=== PATIENT | female | born 1990 | race Caucasian/White ===

== ENCOUNTER 2019-12-09 18:35 | Emergency (ER) | payer OTHER, SELFPAY ==
--- NOTE | 2019-12-09 18:50 | ED.GENADULT ---
HPI - General Adult General Chief complaint: Skin/Abscess/Foreign Body Stated complaint: contact dermatitis/itchy Time Seen by Provider: 12/09/19 18:56 Source: patient and RN notes reviewed Mode of arrival: ambulatory Limitations: no limitations History of Present Illness HPI narrative: This is a 29 years old female presents to the office for an evaluation of possible dermatitis. States, symptoms began shortly after she applies new a body lotion on her face; describes as burning sensation yesterday. She woke up this morning with itchiness, redness and swollen. Denies associated symptoms such as blurry vision, sore throat, difficulty swallowing, short of breath, or feeling ill. She has tried [id number] 25 mg Benadryl at this morning and also a topical anti-itch cream with zinc in it. Symptoms have not gotten any better since the treatment. Related Data Home Medications Medication Instructions Recorded Confirmed diazepam [Valium] 10 mg HS 12/09/19 12/09/19 escitalopram oxalate [Lexapro] 10 mg PO DAILY 12/09/19 12/09/19 phenazopyridine 200 mg TID 12/09/19 12/09/19 Allergies Allergy/AdvReac Type Severity Reaction Status Date / Time No Known Allergies Allergy Verified 12/09/19 18:59 Review of Systems Review of Systems: Narrative: CONSTITUTIONAL: Denies fever or feeling ill. ENT: Denies lump in back of her throat CARDIOVASCULAR: Denies chest pain RESPIRATORY: Denies dyspnea, wheezing GASTROINTESTINAL: Denies nausea, vomiting SKIN: Reports itchy, red hives on her face NEUROLOGIC: Denies dizziness PMFSH Past Medical History Medical History (Updated 12/09/19 @ 19:15 by LAYLA Jurado) Bladder spasms Depressive disorder CHRIST (generalized anxiety disorder) Family History Family History Mother Family history of elevated blood lipids Grandparent Family history of kidney disease Family history of malignant melanoma Social History Social History Smoking status: Never smoker Alcohol intake: never Gender identity (if verbalized by the patient): Female Comments At time of signature, I agree with nursing past medical, surgical, social and family history. There is no relevant family history pertinent to the presenting complaint. Exam Narrative: Exam Narrative: GENERAL: This is a well-nourished, well-developed patient, in no apparent distress. EYES: PERRL. Sclera clear/white. Vision is grossly intact. THROAT: Mucous membranes moist, posterior pharynx clear. NECK: Neck supple, non-tender without lymphadenopathy, masses or thyromegaly. CARDIOVASCULAR: Regular rate and rhythm without murmurs, gallops, or rubs. RESPIRATORY: Clear to auscultation. Breath sounds equal bilaterally. No wheezes, rales, or rhonchi. SKIN: face is flush with edematous erythema around her cheeks, cross over her nose and around her mouth. NEURO: awake, alert, and oriented to person, place and time. There were no obvious focal neurologic abnormalities. Steady gait Demar Coma Scale Eye Opening: Spontaneous 4 [place] Coma Scale Motor: Obeys Commands 6 [place] Coma Scale Verbal: Oriented 5 Course Vital Signs Vital signs: Vital Signs Temperature 97.6 F 12/09/19 18:51 Pulse Rate 80 12/09/19 18:51 Respiratory Rate 18 12/09/19 18:51 Blood Pressure 112/67 12/09/19 18:51 Pulse Oximetry 100 12/09/19 18:51 Temperature 97.6 F 12/09/19 18:51 Pulse Rate 80 12/09/19 18:51 Respiratory Rate 18 12/09/19 18:51 Blood Pressure 112/67 12/09/19 18:51 Pulse Oximetry 100 12/09/19 18:51 Medical Decision Making MDM Narrative Medical decision making narrative: Discharge instructions reviewed with patient, as well as provided in writing per nursing staff. The instructions also include specific and strict return/GO TO THE ER as well as f/u information. All questions have been answered, a
[2019-12-09 18:51] VITALS: BP 112/67; PULSE 80; RESP 18; TEMP 36.4; O2SAT 100
== END 2019-12-09 19:14 | disposition home or self-care (01) ==
PROVIDERS: Emergency Provider Nurse Practitioner
DX: L25.9 Unspecified contact dermatitis, unspecified cause (principal); F32.9 Major depressive disorder, single episode, unspecified; F41.9 Anxiety disorder, unspecified
CPT/HCPCS: 99203; G0463

== ENCOUNTER 2022-08-07 09:46 | Outpatient (CLI) | payer OTHER, SELFPAY ==
--- NOTE | ~2022-08-07 | MMUS_ITS ---
EXAMINATION: MM diagnostic garrick BI w tia, US breast BI complete HISTORY: Palpable right breast abnormality. TECHNIQUE: Additional 3-D tomosynthesis images of the breasts were performed and synthetic 2-D images were generated. CAD analysis was submitted and interpreted. High resolution complete bilateral breas t ultrasound was performed. COMPARISON: No prior studies for comparison. BREAST PARENCHYMAL COMPOSITION: The breasts are extremely dense, which lowers the sensitivity of mamm ography FINDINGS: MAMMOGRAPHIC FINDINGS: There are no discrete masses, architectural distortion or suspicious calcifications in the right michelle st to suggest malignancy. There is a small 5 mm circumscribed radiolucent nodule in the lower outer q uadrant of the left breast, not well visualized on the cc view. ULTRASOUND: Complete bilateral US of all 4 quadrants of the breasts and retroareolar region was reviewed. Right breast ultrasound: At 8:00, 5 cm from the nipple in the area of palpable concern there is a sli ghtly irregular shaped hypoechoic mass measuring 2.2 x 1.3 x 2.8 cm. There is internal vascularity. N o significant posterior features. There is parallel orientation. At 12:00, 3 cm from the nipple, ther e is an oval parallel oriented hypoechoic mass without internal vascularity measuring 1 cm maximum di mension, likely benign. At 10:00, 6 cm from the nipple, there is a complex heterogeneous mass measuri ng 1.2 x 0.9 x 0.5 cm with some angular margins, no internal vascularity, parallel orientation and po sterior acoustic enhancement. Left breast: At 12:00, 1 cm from the nipple there is a 2 mm cyst. Also at 12:00, 1 cm from the nipple , there is a 6 mm cyst. At 1:00, 2 cm from the nipple there is an irregular shaped hypoechoic 6 mm ma ss with parallel orientation and no significant posterior features. At 8:00, 4 cm from the nipple nip ple there is a heterogeneous predominantly hypoechoic mass measuring 9 x 4 x 9 mm. There is mixed pos terior attenuation. No internal vascularity. IMPRESSION: 1. Abnormal bilateral breast masses by ultrasound including a 2.2 cm mass of the right breast at 8:00 , 5 cm from the nipple and a 1.2 cm mass at 10:00, 6 cm from the nipple. In the left breast there is an irregular shaped 6 mm mass at 1:00, 2 cm from the nipple and a 9 mm mass at 8:00, 4 cm from the ni pple. 2. Bilateral breast biopsies recommended. BI-RADS category 4, suspicious findings. Reviewed, dictated and finalized at location A. ICULUM DEVELOPMENT MANAGER IMPRESSION: 1. Abnormal bilateral breast masses by ultrasound including a 2.2 cm mass of th e right breast at 8:00, 5 cm from the nipple and a 1.2 cm mass at 10:00, 6 cm f rom the nipple. In the left breast there is an irregular shaped 6 mm mass at 1: 00, 2 cm from the nipple and a 9 mm mass at 8:00, 4 cm from the nipple. 2. Bilateral breast biopsies recommended. BI-RADS category 4, suspicious findings.
== END 2022-08-07 09:47 ==
PROVIDERS: PCP Obstetrics & Gynecology Gynecology; Visit Provider Obstetrics & Gynecology Gynecology
DX: N63.10 Unspecified lump in the right breast, unspecified quadrant (principal); R92.8 Other abnormal and inconclusive findings on diagnostic imaging of breast
CPT/HCPCS: 76641; 77062; 77066; G0279

== ENCOUNTER 2022-09-04 10:05 | Outpatient (CLI) | payer OTHER, SELFPAY ==
--- NOTE | ~2022-09-04 | MMUS_ITS ---
EXAMINATION: US breast biopsy RT w image, MM post biopsy invasive RT DATE: 09/04/2022 11:29 (accession [id number]), 09/04/2022 11:32 (accession [id number]) INDICATION: Palpable lump of the lower-outer quadrant of the right breast. Ultrasound-guided core bio psy is requested to evaluate for malignancy. TECHNIQUE AND FINDINGS: Patient presents for biopsy recommended on diagnostic mammogram and ultrasound. Four areas are recomm ended for biopsy, one corresponding to a palpable abnormality in the right breast and three incidenta lly detected by ultrasound. Masses described at the 10:00 location 6 cm from the nipple in the right breast, the 8:00 location 4 cm from the nipple in the left breast, at the 1:00 location 2 cm from the nipple in the left breast have a probably benign appearance. This was discussed with the patient and a follow-up targeted ultrasound of these areas in six months was agreed upon. The risks and potentia l benefits of biopsy of the palpable right breast mass were discussed with the patient including blee ding and infection. A time out was performed. The skin of the right breast was prepared and draped in usual sterile fashion. Lidocaine was used for superficial anesthesia. Lidocaine with epinephrine was used for deep anesthesia. A vacuum-assisted biopsy needle was advanced through to the outer edge of the region of interest from an inferior approach utilizing sonographic guidance. A total of three tissue core samples were obtai rashad through the lesion. A tissue marker clip was then placed at the biopsy site. Hemostasis was achie elaine. A sterile bandage was applied. The patient tolerated procedure well and there was no evidence of immediate complication. The patient was given verbal instructions to return to the Emergency Department in the event of severe breast pa in or rapid breast enlargement. A two view right breast mammogram was obtained to document tissue mar ker clip placement. IMPRESSION: 1. Successful ultrasound-guided vacuum-assisted biopsy of right breast mass with tissue marker placem ent. 2. Follow-up targeted bilateral breast ultrasound is recommended for the additional, probably benign masses described. Reviewed, dictated and finalized at location A. TOP SUPPORT CONSULTANT IMPRESSION: 1. Successful ultrasound-guided vacuum-assisted biopsy of right breast mass wit h tissue marker placement. 2. Follow-up targeted bilateral breast ultrasound is recommended for the additi onal, probably benign masses described.
== END 2022-09-04 10:06 | disposition home or self-care (01) ==
PROVIDERS: Visit Provider Surgery
DX: N63.10 Unspecified lump in the right breast, unspecified quadrant (principal); R92.8 Other abnormal and inconclusive findings on diagnostic imaging of breast
CPT/HCPCS: 19083; 88305; A4648

== ENCOUNTER 2024-02-21 14:48 | Outpatient (CLI) | payer OTHER, SELFPAY ==
--- NOTE | ~2024-02-21 | US_ITS ---
EXAMINATION: US OB transvaginal INDICATION: CONFIRMATION OF VIABILITY TECHNIQUE: Sonography of the pelvis was performed by transabdominal and transvaginal techniques. COMPARISON: None. RESULT: Uterus: 7.3 x 5.4 x 6.4 cm. Anteverted. Homogenous myometrium. Intrauterine gestational sac: Single present. Mean Sac Diameter: 1.31 cm, corresponding gestational age 5 week 4 days. Yolk sac: 0.5 cm . A second ringlike echogenic structure is also noted likely re presenting the amniotic sac (the double bleb sign). Embryo: Not seen. Subgestational hematoma: Absent . Right ovary: 2.6 x 3.5 x 2.8 cm. Vascular flow is present. No adnexal mass. Left ovary: Not visualized. No adnexal mass. Pelvis free fluid: None. IMPRESSION: Intrauterine of uncertain viability, possibly due to early gestational age. Estimated Gestational Age: 5 weeks, 4 days by mean gestational sac diameter. CHERELLE by ultrasound 2024. The left ovary was not visualized in this examination. Reviewed, dictated and finalized at location K. IMPRESSION: Intrauterine of uncertain viability, possibly due to early gestationa l age. Estimated Gestational Age: 5 weeks, 4 days by mean gestational sac diameter. E DD by ultrasound 10/19/2024. The left ovary was not visualized in this examination.
== END 2024-02-21 14:49 ==
LOC: MICIMG 14:50
PROVIDERS: PCP Advanced Practice Midwife; Visit Provider Advanced Practice Midwife
DX: O36.80X0 Pregnancy with inconclusive fetal viability, not applicable or unspecified (principal); Z3A.00 Weeks of gestation of pregnancy not specified
CPT/HCPCS: 76817

== ENCOUNTER 2024-03-03 12:45 | Outpatient (CLI) | payer OTHER, SELFPAY ==
--- NOTE | ~2024-03-03 | US_ITS ---
EXAMINATION: US OB transvaginal DATE: 03/03/2024 13:18 INDICATION: Inconclusive viability TECHNIQUE: Real-time transvaginal obstetric ultrasound. FINDINGS: Ultrasound dated 02/21/2024 The uterus measures 8.8 x 5.8 x 6.6 cm. Endometrium is thickened and heterogeneous measuring 2.1 cm. There is a fibroid posterior to the left of the uterus measuring 2.2 cm. There is an intrauterine ges tational sac with possible pole. No heart motions detected. Yolk sac is present. Gestatio nal sac measurements correspond to 5 week 2 day gestation (CHERELLE 11/01/2024). The ovaries are within no rmal limits. There is a small amount of free fluid in the pelvis. IMPRESSION: 1. Intrauterine gestational sac containing pole and yolk sac corresponding to 5 week 2 day gest ation. No heart motions detected, possibly due to early gestational age. Considerations include early intrauterine and failed . Recommend follow-up with serial quantitative beta -hCG levels and ultrasound as clinically indicated. Reviewed, dictated and finalized at location B. IMPRESSION: 1. Intrauterine gestational sac containing pole and yolk sac correspondin g to 5 week 2 day gestation. No heart motions detected, possibly due to e jordana gestational age. Considerations include early intrauterine and f camelia . Recommend follow-up with serial quantitative beta-hCG levels a nd ultrasound as clinically indicated.
== END 2024-03-03 12:46 ==
LOC: MICIMG 12:46
PROVIDERS: PCP Obstetrics & Gynecology Gynecology; Visit Provider Obstetrics & Gynecology Gynecology
DX: O36.80X0 Pregnancy with inconclusive fetal viability, not applicable or unspecified (principal); Z3A.00 Weeks of gestation of pregnancy not specified
CPT/HCPCS: 76817

== ENCOUNTER 2024-03-10 00:41 | Day surgery (SDC) | payer OTHER, SELFPAY ==
[2024-03-05 13:08] VITALS: BMI 30.8
--- NOTE | 2024-03-05 13:16 | SUR.PREOP ---
Report to the Outpatient Waiting Room, entrance under the green pavilion located off [facility], at time 0600 on date 03/10/2024. Planned Procedure Time: 0730. Time changes happen often and if your time is changed the preop area will call you the afternoon before. - You and your visitor will be asked to self-screen and do not enter if you have any COVID symptoms. - A mask is optional within the hospital at this time. Patients may have clear liquids (water, carbonated beverages, clear teas, apple juice) until 3 hours prior to surgery with a maximum of 20 ounces. - No food from midnight until time of surgery - Infants may have breast milk until 4 hours before surgery, infant formula 6 hours prior to surgery. - Children will be allowed to drink immediately following surgery. If applicable, please bring a bottle or sippy cup to assist with drinking. Juice, water, soda, and popsicles are readily available. For infants on formula, please bring formula the day of surgery. Pacifiers are allowed. Take the following medications with a SIP of water the morning of surgery: Lexapro DO NOT STOP ANY OF YOUR OTHER PRESCRIPTION MEDICATIONS PRIOR TO SURGERY ?EXCEPT THE FOLLOWING Medications to discontinue per physician Vitamins- 3 days Date to take last dose 03/07/2024 Please no make-up, nail romanian, hairspray, perfume, deodorant, or body powder the day of surgery. No jewelry (including any body piercings) or valuables the day of surgery, leave them at home. Please take a shower or bath the night before, or the morning of, surgery with an antibacterial soap. Wear comfortable, loose fitting clothing. Children are encouraged to wear pajamas. - Jewelry must be removed prior to entering the operating room. Rings and piercings that are not removed may be cut off. - The hospital will not accept responsibility for valuables. - Please leave all valuables, including medications, at home the day of surgery. If you are going home after surgery, a licensed electric mule driver must drive you home. - NO public transportation without another adult if you receive anesthesia. - We recommend that an adult stay with you for 24 hours following discharge. - We also recommend that you do not drive, make important decision, drink alcoholic beverages, or take any drugs that were not prescribed by your health care provider for at least 24 hours after your discharge time. For Pediatric surgeries, we recommend two adults accompany the child home. Follow any additional instructions given to you from your surgeon. If you or anyone in your household have experienced Covid symptoms in the past week, please notify your surgeon or the nurse liaison at the phone number below for possible testing. Telephone instructions given to Patient and asked if any additional questions and then verbalized understanding. Patient advised to call surgeon office or pre surgery nurse liaison [phone] if any additional questions.
--- NOTE | 2024-03-10 06:13 | P.PNAN_ITS ---
Anes - Initial Pre Proc Eval Procedure: Operation Date: 03/10/24 07:30 Proposed Procedures p Suction Dilation and Curettage - Eliza Banda MD Date/Time: 03/10/24 06:13 Surgeon: Eliza Banda MD Pre Op Diagnosis: missed ab Patient Data Age: 34 Gender: F Height: 1.65 m Weight: 84.09 kg Allergies Allergy/AdvReac Type Severity Reaction Status Date / Time No Known Allergies Allergy Verified 03/05/24 12:49 Home Medications Medication Instructions Recorded Confirmed Type escitalopram oxalate 10 mg tablet 10 mg PO DAILY 12/09/19 03/05/24 History (Lexapro) cetirizine 10 mg capsule (Zyrtec) 10 mg PO DAILY 08/10/22 03/05/24 History Patient hx anesthesia problems: none Family hx anesthesia problems: none Results Review: All pre-operative results and documents have been reviewed as part of the pre- operative evaluation. [facility] Past Medical History Medical History Bladder spasms Depression Depressive disorder CHRIST (generalized anxiety disorder) Family History Family History Mother Family history of elevated blood lipids Grandparent Family history of kidney disease Family history of malignant melanoma Social History Social History Smoking status: Never smoker Alcohol intake: former Alcohol use details: socially Substance use: never Living arrangements: with family Gender identity (if verbalized by the patient): Female Spiritual care concerns: No Anes - Eval Final PreProcedure Day of Procedure 03/10/24 06:13 Patient weight: overweight Heart: regular rate and rhythm Lungs: clear to auscultation Airway: Mallampati scale class II Neurological: alert and oriented Last oral intake: >/= 8 hours ASA classification: II Emergent: no Anesthetic plan: proceed Anesthesia type and monitoring: general GIVS and standard monitoring Results Review: All pre-operative results and documents have been reviewed as part of the pre- operative evaluation. Informed Consent: The patient's anesthetic plan and its attendant risks and benefits were discussed with the patient/family/POA. Questions were solicited and answers provided to the satisfaction of the patient/family/POA.
[2024-03-10] MEDS: ACETAMINOPHEN 500 MG TABLET 1000 MG PO (07:05)
[2024-03-10] MEDS: LACTATED RINGERS 1,000 ML 30 ML IV CONT (07:05)
--- NOTE | 2024-03-10 07:33 | WPDHPUPDATE1 ---
History and Physical Update Update Date/Time: 03/10/24 07:33 History and Physical has been reviewed, including an updated exam of the patient. There are NO changes in the patient's condition. Risks, benefits, and alternatives have been discussed and questions answered. Patient agrees to proceed with procedure.
--- NOTE | 2024-03-10 07:33 | PM.HPGS ---
History of Present Illness History of Present Illness Consent: Risks, benefits, and alternatives have been discussed and questions answered. Patient agrees to proceed with procedure. Chief complaint: missed ab Narrative: Madelaine Malhotra is a 34 year old female with missed Ab. Per u/s no FHTs or growth. Minimal spotting. Options reviewed and plans suction D&C. Reviewed post op expectations. Risks reviewed. Agrees to proceed. Review of Systems Review of Systems: not repeated day of surgery; patient states no changes in status PMFSH Past Medical History Medical History Bladder spasms Depression Depressive disorder CHRIST (generalized anxiety disorder) Family History Family History Mother Family history of elevated blood lipids Grandparent Family history of kidney disease Family history of malignant melanoma Social History Social History Smoking status: Never smoker Alcohol intake: former Alcohol use details: socially Substance use: never Living arrangements: with family Gender identity (if verbalized by the patient): Female Spiritual care concerns: No Meds Home Medications and Allergies Home Medications Medication Instructions Recorded Confirmed Type escitalopram oxalate 10 mg tablet 10 mg PO DAILY 12/09/19 03/05/24 History (Lexapro) cetirizine 10 mg capsule (Zyrtec) 10 mg PO DAILY 08/10/22 03/05/24 History Allergies Allergy/AdvReac Type Severity Reaction Status Date / Time No Known Allergies Allergy Verified 03/05/24 12:49 Exam Const: General: healthy appearing and alert Orientation/consciousness: patient oriented x3 Resp: Effort & Inspection: normal respiratory effort : External Female Exam: normal external appearance Speculum Exam - Vagina: normal appearance of the vagina and normal vaginal discharge Speculum Exam - Cervix: normal appearance of the cervix Bimanual exam- vagina & uterus: uterine size normal and consistency normal Bimanual Exam- Adnexa, other: normal adnexae and No adnexal tenderness Neuro: General: patient oriented x3 Assessment and Plan Assessment and plan (1) Missed : Code(s): O02.1 - Missed Status: Acute Assessment and Plan: Plan to proceed with suction D&C
[2024-03-10 07:45] VITALS: BP 114/57; PULSE 64; RESP 14; TEMP 36.9; O2SAT 100; BMI 29.4
--- NOTE | 2024-03-10 08:09 | P.OP_ITS ---
Procedure Note - Detailed Date of Procedure 03/10/24 Pre-op Diagnosis missed ab Post-op Diagnosis Same Procedure Performed suction D&C Surgeon Eliza Banda MD Anesthesia MAC Findings Uterus initially 11 cm and retroverted. 9cm at end of procedure Description of Procedure Taken to OR and placed in lithotomy position. [place] speculum placed and cervix grasped with tenaculum. Uterus sounded to 11 cm and retroverted. Serially dilated to 8 [place]. 8 mm curved suction curette used to evacuate uterus. Sharp curette x 1 used and no further POC noted. One additional pass with suction and no further POC. Instruments removed. Patient awakened from anesthesia. Counts correct. Estimated Blood Loss 50 Drains No Packing No Pathology Yes (POC) Complications No immediate complications Condition Stable Disposition PACU
[2024-03-10 08:10] VITALS: BP 105/88; PULSE 63; RESP 16; O2SAT 100
--- NOTE | 2024-03-10 08:37 | SUR.PHASEII ---
Patient's blood type is B+. No Rhogam needed.
[2024-03-10 08:40] VITALS: BP 104/54; PULSE 53; O2SAT 100
[2024-03-10] MEDS: oxyCODONE HCL (*CRX) 5 MG TAB IR PO (08:47)
[2024-03-10] MEDS: KETOROLAC 30 MG/ML VIAL (*BKC) IV PUSH (09:03)
[2024-03-10 09:10] VITALS: BP 91/46; PULSE 53
== END 2024-03-10 09:20 | disposition home or self-care (01) ==
PROVIDERS: PCP Nurse Practitioner; Visit Provider Obstetrics & Gynecology Gynecology
PROC: (CPT 59820; principal; 2024-03-10 07:30)
DX: O02.1 Missed abortion (principal); F41.1 Generalized anxiety disorder; F32.A Depression, unspecified
CPT/HCPCS: 59820; 36415; 85461; 86850; 86900; 86901; 88305; A9270; J1100; J1885; J2250; J2405; J2704; J3010; J7120

== ENCOUNTER 2024-12-03 09:12 | Outpatient (CLI) | payer BC, SELFPAY ==
--- NOTE | ~2024-12-03 | XR_ITS ---
TECHNIQUE: Hysterosalpingogram was performed by Dr. Hailey Nolen MD with fluoroscopic guidance. I was present to obtain fluoroscopic images. FINDINGS: Aeroplane Pilot radiograph demonstrates an unremarkable pelvis. Fluoroscopic images demonstrates normal appearing endometrial cavity which has been cannulated. The uterus is retroverted and retroflexed. Cannulation of the cervix required dilatation. Upon injection of contrast, both fallopian tubes opacify and are normal in appearance. There is free spillage bilaterally. Uterus is without evidence of synechia. IMPRESSION: Patent fallopian tubes. DOSE AREA PRODUCT: 8.126 Gy-cm2 Fluoroscopy time 0.2 minutes 25 images Reviewed, dictated and finalized at location A.
--- OUTSIDE RECORDS SUMMARY | 2024-12-03 10:13 | XMS_ITS | Clinical Summary ---
Author Organization [facility] [employer] Address [address] [place] [address] Care Team Providers Care Assistant Professor Of Business Name Role Phone Unavailable Primary Care Provider Unavailabl e Source Comments [facility] [employer],non-owned Affiliates and Associated Physician Practices is amultiple site organization consisting of ambulatory clinics and hospital sitesin [place], [place] and [place]. This disclosure is being madepursuant to the Care Everywhere program and may not contain all information available regarding this patient. Last updated 18.[employer] Allergies No known active allergies Medications * Be aware that medications may not be up to date on this document. Alwaysverify current medications with the patient. Medication Sig Dispensed Refills Start Date End Date Status escitalopram (LEXAPRO) 10 MG tablet Take 10 mg by mouth once daily Active Social History Tobacco Use Types Packs/Day Years Used Date Smoking Tobacco: Never Smokeless Tobacco: Never Sex and Gender Information Value Date Recorded Sex Assigned at Not on file Gender Identity Not on file Sexual Orientation Not on file Last Filed Vital Signs Vital Sign Reading Time Taken Comments Blood Pressure 120/70 03/10/2020 6:15 PM CDT Pulse 69 03/10/2020 6:15 PM CDT Temperature 36.6 C (97.8 F) 03/10/2020 6:15 PM CDT Respiratory Rate 16 03/10/2020 6:15 PM CDT Oxygen Saturation 98% 03/10/2020 6:15 PM CDT Inhaled Oxygen Concentration - - Weight 70.3 kg (155 lb) 03/10/2020 6:15 PM CDT Height 165.1 cm (5' 5 ) 03/10/2020 6:15 PM CDT Body Mass Index 25.79 03/10/2020 6:15 PM CDT Plan of Treatment Health Maintenance Due Date Last Done Comments PAP SMEAR 1990 HIV SCREENING 2005 HEPATITIS C SCREENING 02/01/2008 DTAP/TDAP/TD VACCINES (1 - Tdap) 2009 HEPATITIS B VACCINE (1 of 3 - 19+ 3-dose series) 2009 COVID-19 VACCINE (1 - 2023-2 5 season) 2024 INFLUENZA VACCINE (#1) 2024 DEPRESSION SCREENING 09/23/2024 ZOSTER VACCINE (1 of 2) 02/06/2040 HIB VACCINE Aged Out No longer eligi ble based on patient's age to complete this topic HPV VACCINE Aged Out No longer eligi ble based on patient's age to complete this topic MENINGOCOCCAL (Group B) VACC INE SHARED DECISION-MAKING Aged Out No longer eligibl e based on patient's age to complete this topic MENINGOCOCCAL GROUPS A/C/Y/W VACCINE Aged Out No longer eligible b ased on patient's age to complete this topic PNEUMOCOCCAL VACCINE Aged Out No long er eligible based on patient's age to complete this topic Guarantor Name Account Type Relation to Patient Date of Phone Billing Address TOY GIBSON Personal/Family [address] [place] [phone] SHELTONJOSETOY Personal/Family [address] [place] [phone] MARYATOY Personal/Family [address] [place] [address] Marya Toy Fabian Personal/Family Self [address] [place] [phone] Toy Gibson Personal/Family Self 1990 [address] [place] [address]
--- OUTSIDE RECORDS SUMMARY | 2024-12-03 10:13 | XMS_ITS | Referral Summary ---
Author Organization [facility] Address [address] [facility] [place] [address] Care Team Providers Care Shell Mold Bonder Name Role Phone Unavailable Primary Care Provider Unavailabl e Source Comments [facility],non-owned Affiliates and Associated Physician Practices is amultiple site organization consisting of ambulatory clinics and hospital sitesin [place], [place], [place] and [place]. This disclosure is being madepursuant to the Care Everywhere program and may not contain all information available regarding this patient. Last updated [email or web address] [facility] Allergies No known active allergies Medications * [...] 03/10/2020 6:15 PM CDT Plan of Treatment Not on file Guarantor Name Account Type Relation to Patient Date of Phone Billing Address TOY GIBSON Personal/Family [address] [place] [phone] TOY GIBSON Personal/Family [address] [place] [phone] TOY GIBSON Personal/Family [address] [place] [phone] Toy Gibson Personal/Family Self [address] [place] [id number] Toy Gibson Personal/Family Self [address] [place] [address]
--- OUTSIDE RECORDS SUMMARY | 2024-12-03 10:13 | XMS_ITS | Patient Health Summary ---
Author Organization [facility] [employer] Address [address] [facility] [place] [address] Care Team Providers Care Chief Clinical Officer Name Role Phone Unavailable Primary Care Provider Unavailabl e Note from [facility],non-owned Affiliates and Associated Physician Practices is amultiple site organization consisting of ambulatory clinics and hospital sitesin [place], [place], [place] and [place]. This disclosure is being madepursuant to the Care Everywhere program and may not contain all informatio navailable regarding this patient. Last updated 18.[facility] [employer] Allergies No known active allergies Medications * Be aware that medications may not be up to date on this document. Alwaysverify current medications with the patient. * escitalopram (LEXAPRO) 10 MG tablet Take 10 mg by mouth once daily Social History Tobacco Use Types Packs/Day Years [...]
--- OUTSIDE RECORDS SUMMARY | 2024-12-03 10:13 | XMS_ITS | Clinical Summary ---
Author Organization [facility] Address [address] [place] [address] Care Team Providers Care Home Restoration Service Supervisor Name Role Phone Ludmila Winkler NP Primary Care Provider [phone] Allergies No known active allergies Medications escitalopram (LEXAPRO) 10 MG tablet Take 1 tablet (10 mg total) by mouth daily. 10/25/2022 Active letrozole (FEMARA) 2.5 MG tablet 11/21/2024 Active Active Problems No known active problems Encounters Date Type Department Care Team Description 11/23/2024 12:40 PM REGISTERED RADIATION THERAPIST Office Visit [facility] Family [facility] - [place] [address] [address] Ludmila Winkler NP Mass (Patient presents with c/o bump back of left arm above elbow. ) 11/23/2024 Travel from Last 3 Months Immunizations Name Administration Dates Next Due Dtp (Generic) 04/22/1995, 2,1990,1989,1990 Hepatitis B Vaccine Adult 11/30/2000,06/15/2000, 05/06/2000 Hib (PedvaxHIB)3 Dose 05/30/1991 MMR (MMRII) 04/22/1995,05/30/1991 Polio Opv (Generic) 04/22/1995, 2,1990,1989,1990 Td, Adsorbed, Preservative F ree, Adult Use, Lf Unspecified 04/12/2004 Tdap (Generic) 08/14/2015 Varicella (Varivax) 06/15/2000 Family History Medical History Relation Comments None Mother Relation Status Comments Mother Social History Tobacco Use Types Packs/Day Years Used Date Smoking Tobacco: Never Passive Smoke Exposure: Never Smokeless Tobacco: Never Tobacco Cessation:Counseling Given: No Alcohol Use Standard Drinks/Week Comments Yes 0 (1 standard drink = 0.6 oz pur e alcohol) Drink socailly PHQ-2 Answer Date Recorded Patient Health Questionnaire-2 Score 0 11/23/2024 Comments No Sex and Gender Information Value Date Recorded Sex Assigned at Female 11/23/2024 12:53 PM REGISTERED RADIATION THERAPIST Legal Sex Female 2:06 PM REGISTERED RADIATION THERAPIST Gender Identity Female 11/23/2024 12:53 PM REGISTERED RADIATION THERAPIST Sexual Orientation Not on file Last Filed Vital Signs Vital Sign Reading Time Taken Comments Blood Pressure 128/82 11/23/2024 12:53 PM REGISTERED RADIATION THERAPIST Pulse 77 11/23/2024 12:53 PM REGISTERED RADIATION THERAPIST Temperature 37.3 C (99.1 F) 11/23/2024 12:53 PM REGISTERED RADIATION THERAPIST Respiratory Rate 18 11/23/2024 12:53 PM REGISTERED RADIATION THERAPIST Oxygen Saturation 100% 11/23/2024 12:53 PM REGISTERED RADIATION THERAPIST Inhaled Oxygen Concentration - - Weight 83 kg (183 lb) 11/23/2024 12:53 PM REGISTERED RADIATION THERAPIST Height 167.6 cm (5' 6 ) 11/23/2024 12:53 PM REGISTERED RADIATION THERAPIST Body Mass Index 29.54 11/23/2024 12:53 PM REGISTERED RADIATION THERAPIST Plan of Treatment Health Maintenance Due Date Last Done Comments Cervical Cancer Screening Pap Smear (Age 30 to 64) Every 3 Years 1990 Cervical Cancer Screening Pap with HPV Testing (Age 30 to 64) Every 5 Years 02/06/2020 Cervical Cancer Screening with HPV 02/06/2020 Annual Physical 12/22/2023 12/21/2022 COVID-19 Vaccine ( season) 2024 12/28/2020, 11/30/2020 Influenza Adult (#1) 2024 DTaP, Tdap and Td Vaccines (7 - Td or Tdap) 08/14/2025 08/14/2015, 04/12/2004, 04/22/1995, Additional history exists Hepatitis B Vaccines Completed 11/30/2000, 06/15/2000, 05/06/2000 Hepatitis C Completed 12/21/2022 PHQ-2 (Physician [place]) Completed 11/23/2024 HPV Vaccines Aged Out No longer eligi ble based on patient's age to complete this topic Meningococcal B Vaccine Aged Out No l onger eligible based on patient's age to complete this topic Meningococcal Vaccine Aged Out No alma wiley eligible based on patient's age to complete this topic Pneumococcal Vaccine: Pediatrics (0 to 5 Years) and At-Risk Patients (6 to 64 Years) Aged Out No longer eligible based on patient's age to complete this topic RSV Immunizations Under 20 Months Aged Out No longer eligible based on patient's age to complete this topic Procedures Procedure Name Priority Date/Time Associated Diagnosis Comments HEPATITIS C ANTIBODY Routine 12/21/2022 9:49 AM CDT Encounter for hepatitis C screening test for low risk patient from Last 3 Months or Most Recently Relevant to Health Maintenance Results * HEPATITIS C ANTIBODY ([facility] ONLY) (12/21/2022 9:49 AM CDT) HEPATITIS C AB NON-REACTI VE NON-REACT NICK 12/21/2022 7:56 PM CDT [facility] Comment: ANTIBODIES TO HCV NOT DETECTED. DOES NOT EXCLUDE THE POSSIBILITY OF EXPOSURE TO HCV. 12/21/2022 9:49 AM CDT us Mary Nelson GARMENT MENDER [facility] Final Re sult [facility] [address] [place] [address], [id number] from Last 3 Months or Most Recently Relevant to Health Maintenance Insurance [facility] Care Teams Home Restoration Service Supervisor Relationship Specialty Start Date End Date Ludmila Winkler NP [address] [place] [address] PCP - General NURSE PRACTITIONER 11/27/22
[2024-12-03 10:20] LABS: Beta HCG Quantitative < 2.39 mIU/ML
== END 2024-12-03 09:13 | disposition home or self-care (01) ==
PROVIDERS: PCP Nurse Practitioner; Visit Provider Obstetrics & Gynecology
DX: Z87.42 Personal history of other diseases of the female genital tract (principal); N97.0 Female infertility associated with anovulation
CPT/HCPCS: 36415; 58340; 74740; 84702

== ENCOUNTER 2025-01-18 12:51 | Outpatient (CLI) | payer BC, SELFPAY ==
[2025-01-18 13:54] LABS: Beta HCG Quantitative 944.02 mIU/ML
--- OUTSIDE RECORDS SUMMARY | 2025-01-18 14:31 | XMS_ITS | Clinical Summary ---
Author Organization [facility] [employer] Address [address] [facility] [place] [address] Care Team Providers Care Cadence Specialists Name Role Phone Unavailable Primary Care Provider Unavailabl e Source Comments [facility] [employer],non-owned Affiliates and Associated Physician Practices is amultiple site organization consisting of ambulatory clinics and hospital sitesin [place], [place], [place] and [place]. This disclosure is being madepursuant to the Care Everywhere program and may not contain all information available regarding this patient. Last updated 18.[employer] Allergies No known active allergies Medications * Be aware that medications may not be up to date on this document. Alwaysverify current medications with the patient. escitalopram (LEXAPRO) 10 MG tablet Take 10 mg by mouth once daily Active Social History Tobacco Use Types Packs/Day Years Used Date Smoking Tobacco: Never Smokeless Tobacco: Never Comments No Sex and Gender Information Value Date Recorded Sex Assigned at Not on file Legal Sex Female 6:32 PM CDT Gender Identity Not on file Sexual Orientation [...] VACCINE (1 - 2023-2 5 season) 2024 DEPRESSION SCREENING 09/23/2024 INFLUENZA VACCINE (Season Ended) 2025 ZOSTER VACCINE (1 of 2) 02/06/2040 HIB [...] on patient's age to complete this topic Insurance * Guarantor: TOY GIBSON Account Type Relation to Patient Date of Phone Billing Address Personal/Family [address] [place] [phone] COMMERCIAL GENERIC SELF PAY NO INSURANCE Member Subscriber Plan / Payer (Ef fective for All Dates) Name:Toy Gibson Member ID:Not on file Relation to Subscriber:Not on file Name:TOY GIBSON Subscriber ID:Not on file Address: [address] [place] [phone] Payer ID:Not on file Group ID:Not on file Type:Self Pay Address: [place], [place] * Guarantor: TOY GIBSON Account Type Relation to Patient Date of Phone Billing Address Personal/Family [address] [place] [address] COMMERCIAL GENERIC SELF PAY NO INSURANCE Member Subscriber Plan / Payer (Ef fective for All Dates) Name:Toy Gibson Member ID:Not on file Relation to Subscriber:Not on file Name:TOY GIBSON Subscriber ID:Not on file Address: [address] [place] [address] Payer ID:Not on file Group ID:Not on file Type:Self Pay Address: [place], [place] * Guarantor: TOY GIBSON Account Type Relation to Patient Date of Phone Billing Address Personal/Family [address] [place] [address] COMMERCIAL GENERIC SELF PAY NO INSURANCE Member Subscriber Plan / Payer (Ef fective for All Dates) Name:Toy Gibson Fabian Member ID:Not on file Relation to Subscriber:Not on file Name:ROBBIESHANNONJOSETOY Subscriber ID:Not on file Address: [address] [place] [address] Payer ID:Not on file Group ID:Not on file Type:Self Pay Address: [place], [place]
--- OUTSIDE RECORDS SUMMARY | 2025-01-18 14:31 | XMS_ITS | Clinical Summary ---
Author Organization [facility] Address [address] [place] [address] Care Team Providers Care Farm Machinery Erector Name Role Phone Ludmila Winkler NP Primary Care Provider [phone] [phone] Allergies No known active allergies Medications escitalopram (LEXAPRO) 10 MG tablet Take 1 tablet (10 mg total) by mouth daily. 10/25/2022 Active letrozole (FEMARA) 2.5 MG tablet 11/21/2024 Active Active Problems No known active problems Encounters Date Type Department Care Team Description 12/03/2024 Scan [facility] HEALTH INFO SRVCS Scanned, Doc Med Group Image (SCAN) 11/23/2024 12:40 PM CREDIT SPECIALIST Office Visit [facility] Family Medicine [facility] [address] [place] [address] Ludmila Winkler, LINE SUPPLY Mass (Patient presents with c/o bump back of left arm above elbow. ) 11/23/2024 Travel from Last 3 Months Immunizations Immunization Administration Dates Next Due Dtp (Generic) 04/22/1995, [...] Sex Assigned at Female 11/23/2024 12:53 PM CREDIT SPECIALIST Legal Sex Female 2:06 PM CREDIT SPECIALIST Gender Identity Female 11/23/2024 12:53 PM CREDIT SPECIALIST Sexual Orientation Not on file Last Filed Vital Signs Vital Sign Reading Time Taken Comments Blood Pressure 128/82 11/23/2024 12:53 PM CREDIT SPECIALIST Pulse 77 11/23/2024 12:53 PM CREDIT SPECIALIST Temperature 37.3 C (99.1 F) 11/23/2024 12:53 PM CREDIT SPECIALIST Respiratory Rate 18 11/23/2024 12:53 PM CREDIT SPECIALIST Oxygen Saturation 100% 11/23/2024 12:53 PM CREDIT SPECIALIST Inhaled Oxygen Concentration - - Weight 83 kg (183 lb) 11/23/2024 12:53 PM CREDIT SPECIALIST Height 167.6 cm (5' 6 ) 11/23/2024 12:53 PM CREDIT SPECIALIST Body Mass Index 29.54 11/23/2024 12:53 PM CREDIT SPECIALIST Plan of Treatment Health Maintenance Due Date Last Done Comments Cervical Cancer Screening Pap Smear (Age 30 to 64) Every 3 Years 1990 Cervical Cancer Screening Pap with HPV Testing (Age 30 to 64) Every 5 Years 02/06/2020 Cervical Cancer Screening with HPV 02/06/2020 Annual Physical 12/22/2023 12/21/2022 COVID-19 Vaccine ( season) 2024 12/28/2020, 11/30/2020 DTaP, Tdap and Td Vaccines (7 - Td or Tdap) 08/14/2025 08/14/2015, 04/12/2004, 04/22/1995, Additional history exists Hepatitis B Vaccines Completed 11/30/2000, 06/15/2000, 05/06/2000 Hepatitis C Completed 12/21/2022 PHQ-2 (Physician [place]) Completed 11/23/2024 HPV Vaccines Aged Out No longer eligi ble based on patient's age to complete this topic Meningococcal B Vaccine Aged Out No l onger eligible based on patient's age to complete this topic Meningococcal Vaccine Aged Out No alma wiley eligible based on patient's age to complete this topic Pneumococcal Vaccine: Pediatrics (0 to 5 Years) and At-Risk Patients (6 to 49 Years) Aged Out No longer eligible based on patient's age to complete this topic RSV Immunizations Under 20 Months Aged Out No longer eligible based on patient's age to complete this topic Procedures Procedure Name Priority Date/Time Associated Diagnosis Comments IMAGE GENERIC 12/03/2024 HEPATITIS C ANTIBODY Routine 12/21/2022 9:49 AM CDT Encounter for hepatitis C screening test for low risk patient from Last 3 Months or Most Recently Relevant to Health Maintenance Results * IMAGE GENERIC (12/03/2024) Anatomical Region Laterality Modality Other 12/03/2024 us Doc Med Group Scanned SCANNING Final Resu lt * HEPATITIS C ANTIBODY ([facility] ONLY) (12/21/2022 9:49 AM CDT) HEPATITIS C AB NON-REACTI VE NON-REACT NICK 12/21/2022 7:56 PM CDT [facility] Comment: ANTIBODIES TO HCV NOT DETECTED. DOES NOT EXCLUDE THE POSSIBILITY OF EXPOSURE TO HCV. 12/21/2022 9:49 AM CDT Mary Nelson LINE SUPPLY [facility] Final Re sult [facility] [address] [place] [address], [id number] from Last 3 Months or Most Recently Relevant to Health Maintenance Insurance [facility] Care Teams Farm Machinery Erector Relationship Specialty Start Date End Date Ludmila Winkler NP [address] [place] [address] PCP - General NURSE PRACTITIONER 11/27/22
== END 2025-01-18 12:52 | disposition home or self-care (01) ==
LOC: ANHLAB 12:53
PROVIDERS: PCP Nurse Practitioner; Visit Provider Obstetrics & Gynecology
DX: N91.2 Amenorrhea, unspecified (principal)
CPT/HCPCS: 36415; 84702

== ENCOUNTER 2025-01-20 13:51 | Outpatient (CLI) | payer BC, SELFPAY ==
--- OUTSIDE RECORDS SUMMARY | 2025-01-20 14:48 | XMS_ITS | Clinical Summary ---
Author Organization [facility] [employer] Address [address] [place] [address] Care Team Providers Care Cartridge Loader Name Role Phone Unavailable Primary Care Provider Unavailabl e Source Comments [facility] [employer]non-owned Affiliates and Associated Physician Practices is amultiple site organization consisting of ambulatory clinics and hospital sitesin [place], [place], [place]. This disclosure is being madepursuant to the Care Everywhere program and may not contain all information available regarding this patient. Last updated 18.[employer] Allergies No known active allergies Medications * [...] Patient Date of Phone Billing Address Personal/Family [address] [place] [phone] COMMERCIAL GENERIC SELF PAY NO INSURANCE Member Subscriber Plan / Payer (Ef fective for All Dates) Name:Toy Gibson Member ID:Not on file Relation to Subscriber:Not on file Name:TOY GIBSON Subscriber ID:Not on file Address: [address] [place] [phone] Payer ID:Not on file Group ID:Not on file Type:Self Pay Address: [place], [place] * Guarantor: TOY GIBSON Account Type Relation to Patient Date of Phone Billing Address Personal/Family [address] [place] [address] COMMERCIAL GENERIC SELF PAY NO INSURANCE Member Subscriber Plan / Payer (Ef fective for All Dates) Name:Toy Gibson Member ID:Not on file Relation to Subscriber:Not on file Name:TOY GIBSON Subscriber ID:Not on file Address: [address] [place] [address] Payer ID:Not on file Group ID:Not on file Type:Self Pay Address: [place], [place] * Guarantor: TOY GIBSON Account Type Relation to Patient Date of Phone Billing Address Personal/Family [address] [place] [address] COMMERCIAL GENERIC SELF PAY NO INSURANCE Member Subscriber Plan / Payer (Ef fective for All Dates) Name:Toy Gibson Fabian Member ID:Not on file Relation to Subscriber:Not on file Name:ROBBIESHANNONJOSETOY Subscriber ID:Not on file Address: [address] [place] [address] Payer ID:Not on file Group ID:Not on file Type:Self Pay Address: [place], [place]
--- OUTSIDE RECORDS SUMMARY | 2025-01-20 14:48 | XMS_ITS | Clinical Summary ---
Author Organization [facility] Address [address] [place] [address] Care Team Providers Care Slate Trimmer Name Role Phone Ludmila Winkler NP Primary Care Provider [phone] [phone] Allergies No known active allergies Medications escitalopram (LEXAPRO) 10 MG tablet Take 1 tablet (10 mg total) by mouth daily. 10/25/2022 Active letrozole (FEMARA) 2.5 MG tablet 11/21/2024 Active Active Problems No known active problems Encounters Date Type Department Care Team Description 12/03/2024 Scan [facility] HEALTH INFO SRVCS Scanned, Doc Med Group Image (SCAN) 11/23/2024 12:40 PM VASCULAR TECHNOLOGIST SONOGRAPHER Office Visit [facility] Family [facility] [address] [place] [address] Ludmila Winkler, SENIOR SOFTWARE DEVELOPMENT ENGINEER Mass (Patient presents with c/o bump back [...] Sex Assigned at Female 11/23/2024 12:53 PM VASCULAR TECHNOLOGIST SONOGRAPHER Legal Sex Female 2:06 PM VASCULAR TECHNOLOGIST SONOGRAPHER Gender Identity Female 11/23/2024 12:53 PM VASCULAR TECHNOLOGIST SONOGRAPHER Sexual Orientation Not on file Last Filed Vital Signs Vital Sign Reading Time Taken Comments Blood Pressure 128/82 11/23/2024 12:53 PM VASCULAR TECHNOLOGIST SONOGRAPHER Pulse 77 11/23/2024 12:53 PM VASCULAR TECHNOLOGIST SONOGRAPHER Temperature 37.3 C (99.1 F) 11/23/2024 12:53 PM VASCULAR TECHNOLOGIST SONOGRAPHER Respiratory Rate 18 11/23/2024 12:53 PM VASCULAR TECHNOLOGIST SONOGRAPHER Oxygen Saturation 100% 11/23/2024 12:53 PM VASCULAR TECHNOLOGIST SONOGRAPHER Inhaled Oxygen Concentration - - Weight 83 kg (183 lb) 11/23/2024 12:53 PM VASCULAR TECHNOLOGIST SONOGRAPHER Height 167.6 cm (5' 6 ) 11/23/2024 12:53 PM VASCULAR TECHNOLOGIST SONOGRAPHER Body Mass Index 29.54 11/23/2024 12:53 PM VASCULAR TECHNOLOGIST SONOGRAPHER Plan of Treatment Health Maintenance Due Date [...] 05/06/2000 Hepatitis C Completed 12/21/2022 PHQ-2 (Physician [place]) Completed 11/23/2024 HPV Vaccines Aged Out No [...] Final Resu lt * HEPATITIS C ANTIBODY ([facility] ONLY) (12/21/2022 9:49 AM CDT) HEPATITIS C AB NON-REACTI VE NON-REACT NICK 12/21/2022 7:56 PM CDT [facility] Comment: ANTIBODIES TO HCV NOT DETECTED. DOES NOT EXCLUDE THE POSSIBILITY OF EXPOSURE TO HCV. 12/21/2022 9:49 AM CDT Mary Nelson SENIOR SOFTWARE DEVELOPMENT ENGINEER LABORATORY Final Re sult [facility] [address] [place] [address], [id number] from Last 3 Months or Most Recently Relevant to Health Maintenance Insurance [facility] Care Teams Slate Trimmer Relationship Specialty Start Date End Date Ludmila Winkler NP [address] [place] [address] PCP - General NURSE PRACTITIONER 11/27/22
== END 2025-01-20 13:52 | disposition home or self-care (01) ==
LOC: ANHLAB 13:52
PROVIDERS: PCP Nurse Practitioner; Visit Provider Obstetrics & Gynecology
DX: Z34.90 Encounter for supervision of normal pregnancy, unspecified, unspecified trimester (principal)
CPT/HCPCS: 36415; 84702

== ENCOUNTER 2025-06-16 11:06 | Observation (INO) | payer BC, SELFPAY ==
[2025-06-16] VITALS (84 sets, daily range): BP systolic 93–139; BP diastolic 49–101; PULSE 82–123; RESP 16–18; TEMP 37.3–37.7; O2SAT 98–100; BMI 30.9
--- NOTE | ~2025-06-16 | US_ITS ---
Please see report from Limited OB ultrasound dated 06/16/2025 for details Reviewed, dictated and finalized at location O.
--- NOTE | ~2025-06-16 | US_ITS ---
EXAMINATION: US OB limited DATE: 06/16/2025 12:38 INDICATION: contractions during second trimester of . Assess cervical length and amniotic fluid index. TECHNIQUE: Real-time ultrasound of the pelvis was performed. The interpreting radiologist was not present for the study. COMPARISON: None. FINDINGS: There is a single living fetus in vertex presentation. The placenta is anterior and not low-lying. There are couple anechoic venous lakes within the placenta, the larger measuring 3.2 x 1.7 x 1.7 cm. heart rate is 150 beats per minute (bpm). The amniotic fluid index is 6.8 cm, which is below normal limits. (5th%-95%: 9.7-22.1 cm at 25 weeks estimated gestational age). 5.5 x 5.0 x 3.9 cm hypoechoic fibroid along the anterior wall of the lower uterine segment. Cervical length measures 2.7 cm below normal limits but without funneling. IMPRESSION: 1. Single living fetus in vertex presentation with heart rate of 150 bpm. 2. Oligohydramnios with amniotic fluid index of 6.8 cm. 3. Short cervix measuring 2.7 cm in length but without funneling. 4. 5.5 cm fibroid along the anterior lower uterine segment. Reviewed, dictated and finalized at location A. IMPRESSION: 1. Single living fetus in vertex presentation with heart rate of 150 bpm . 2. Oligohydramnios with amniotic fluid index of 6.8 cm. 3. Short cervix measuring 2.7 cm in length but without funneling. 4. 5.5 cm fibroid along the anterior lower uterine segment.
[2025-06-16] MEDS: TERBUTALINE SULFATE 1 MG/ML VIAL 0.25 MG SUB-Q ×2 (11:49→12:46)
[2025-06-16] MEDS: LACTATED RINGERS 1,000 ML 999 ML IV CONT (12:02)
--- OUTSIDE RECORDS SUMMARY | 2025-06-16 12:04 | XMS_ITS | Clinical Summary ---
Author Organization [facility] Address [address] [place] [address] Care Team Providers Care Cisco Network Architect Name Role Phone Ludmila Winkler NP Primary Care Provider [phone] [phone] Allergies No known active allergies Medications escitalopram (LEXAPRO) 10 MG tablet Take 1 tablet (10 mg total) by mouth daily. 10/25/2022 Active letrozole (FEMARA) 2.5 MG tablet 11/21/2024 Active Active Problems No known active problems Immunizations Immunization Administration Dates Next Due Dtp [...] Sex Assigned at Female 11/23/2024 12:53 PM MECHANICAL TECH Legal Sex Female 2:06 PM MECHANICAL TECH Gender Identity Female 11/23/2024 12:53 PM MECHANICAL TECH Sexual Orientation Not on file Last Filed Vital Signs Vital Sign Reading Time Taken Comments Blood Pressure 128/82 11/23/2024 12:53 PM MECHANICAL TECH Pulse 77 11/23/2024 12:53 PM MECHANICAL TECH Temperature 37.3 C (99.1 F) 11/23/2024 12:53 PM MECHANICAL TECH Respiratory Rate 18 11/23/2024 12:53 PM MECHANICAL TECH Oxygen Saturation 100% 11/23/2024 12:53 PM MECHANICAL TECH Inhaled Oxygen Concentration - - Weight 83 kg (183 lb) 11/23/2024 12:53 PM MECHANICAL TECH Height 167.6 cm (5' 6) 11/23/2024 12:53 PM MECHANICAL TECH Body Mass Index 29.54 11/23/2024 12:53 PM MECHANICAL TECH Plan of Treatment Health Maintenance Due Date Last Done Comments Cervical Cancer Screening Pap Smear (Age 30 to 64) Every 3 Years 1990 HPV Vaccines (1 - 3-dose SCDM series) 2017 Cervical Cancer Screening Pap with HPV Testing (Age 30 to 64) Every 5 Years 02/06/2020 Cervical Cancer Screening with HPV 02/06/2020 Annual Physical 12/22/2023 12/21/2022 COVID-19 Vaccine ( season) 2025 12/28/2020, 11/30/2020 DTaP, Tdap and Td Vaccines (7 - Td or Tdap) 08/14/2025 08/14/2015, 04/12/2004, 04/22/1995, Additional history exists Hepatitis B Vaccines Completed 11/30/2000, 06/15/2000, 05/06/2000 Hepatitis C Completed 12/21/2022 PHQ-2 (Physician [place]) Completed 11/23/2024 Meningococcal B Vaccine Aged Out No l [...] Health Maintenance Results * HEPATITIS C ANTIBODY ([facility] ONLY) (12/21/2022 9:49 AM CDT) HEPATITIS C AB NON-REACTI VE NON-REACT NICK 12/21/2022 7:56 PM CDT [facility] Comment: ANTIBODIES TO HCV NOT DETECTED. DOES NOT EXCLUDE THE POSSIBILITY OF EXPOSURE TO HCV. 12/21/2022 9:49 AM CDT us Mary Nelson DOWNSTREAM BIOMANUFACTURING TECHNICIAN LABORATORY Final Re sult [facility] [address] [place] [address], [id number] from Last 3 Months or Most Recently Relevant to Health Maintenance Insurance Care Teams Cisco Network Architect Relationship Specialty Start Date End Date Ludmila Winkler NP [address] [place] [address] PCP - General NURSE PRACTITIONER 11/27/22
--- OUTSIDE RECORDS SUMMARY | 2025-06-16 12:04 | XMS_ITS | Clinical Summary ---
Author Organization [facility] Address [address] [place] [address] Care Team Providers Care Decontamination Technician Name Role Phone Unavailable Primary Care Provider Unavailabl e Source Comments [facility],non-owned Affiliates and Associated Physician Practices is amultiple site organization consisting of ambulatory clinics and hospital sitesin [place], [place], [place] and [place]. This disclosure is being madepursuant to the Care Everywhere program and may not contain all information available regarding this patient. Last updated 18.[facility] Allergies No known active allergies Medications * Be aware that medications may not be up to date on this document. Alwaysverify current medications with the patient. escitalopram (LEXAPRO) 10 MG tablet Take 10 mg by mouth once daily Active Encounters Date Type Department Care Team Description 06/01/2025 7:21 AM CDT - 06/01/2025 11:59 PM CDT Hospital Encounter [facility] M[facility] & Care [address] [place] [id number] Chad Cedeño, CLIENT RELATIONS ASSOCIATE Discharge Disposition: Home or Self Care 05/07/2025 1:30 PM CDT - 05/07/2025 11:59 PM CDT Hospital Encounter [facility] [address] [place] [id number] Chad Cedeño DO CLIENT RELATIONS ASSOCIATE Discharge Disposition: Home or Self Care 03/19/2025 2:23 PM CDT - 03/19/2025 11:59 PM CDT Hospital Encounter [facility] [address] [place] [address] Leila Yan MD Discharge Disposition: Home or Self Care from Last 3 Months Immunizations Immunization Administration Dates Next Due DTP 04/22/1995, 2,1990,1990, 1990 HEP B VACCINE ADOL/ADULT 2 DOSE 11/30/2000,06/15,05/06/2000 HIB-PRP-OMP 3 DOSE 05/30/1991 MMR 04/22/1995,05/30/1991 POLIO OPV 04/22/1995, 2,1990,1990, 1990 TD VACCINE 04/12/2004 VARICELLA 06/15/2000 Social History Tobacco Use Types Packs/Day Years Used Date Smoking Tobacco: Never Smokeless Tobacco: Never Estimated Date of Delivery Comme nts Yes 09/24/2025 Based on last me nstrual period of 12/18/2024 Sex and Gender Information Value Date Recorded Sex Assigned at Not on file 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 Gender Identity Not on file Sexual Orientation [...] 6:15 PM CDT Height 165.1 cm (5' 5) 03/10/2020 6:15 PM CDT Body Mass Index 25.79 03/10/2020 6:15 PM CDT Plan of Treatment Health Maintenance Due Date Last Done Comments HIV SCREENING 2005 PAP SMEAR 2011 DTAP/TDAP/TD VACCINES (7 - Td or Tdap) 04/12/2014 04/12/2004, 04/22/1995, 12/26/1991, Additional history exists HPV VACCINE (1 - 3-dose SCDM series) 2017 DEPRESSION SCREENING 09/23/2024 COVID-19 VACCINE ( season) 2025 12/28/2020, 11/30/2020 INFLUENZA VACCINE (#1) 2025 OB-ONE HOUR GLUCOSE 06/18/2025 OB-TDAP CURRENT 06/25/2025 08/14/2015 OB-RHOGAM INJECTION 07/02/2025 Respiratory Syncytial Virus (RSV) Vaccine Pt: or over 60 yrs (1 - Risk 1-dose series) 07/30/2025 ZOSTER VACCINE (1 of 2) 02/06/2040 HIB VACCINE Completed 05/30/1991 HEPATITIS B VACCINE Completed 11/30/2000, 06/15/2000, 05/06/2000 HEPATITIS C SCREENING Completed 12/21/2022 MENINGOCOCCAL (Group B) VACCINE SHARED DECISION-MAKING Aged Out No longer eligible based on patient's age to complete this topic MENINGOCOCCAL GROUPS A/C/Y/W VACCINE Aged Out No longer eligible based on patient's age to complete this topic PNEUMOCOCCAL VACCINE Aged Out No long er eligible based on patient's age to complete this topic Procedures Procedure Name Priority Date/Time Associated Diagnosis Comments SONOGRAM - COMPLETE Routine 06/01/2025 7:30 AM CDT Advanced maternal age in multigravida, first trimester (HCC) Uterine fibroids affecting in second trimester (HCC) 23 weeks gestation of (HCC) Encounter for follow-up ultrasound of anatomy (HCC) Encounter for ultrasound to assess growth (HCC) SONOGRAM - COMPLETE Routine 05/07/2025 1:58 PM CDT Advanced maternal age in multigravida, first trimester (HCC) Uterine fibroids affecting in second trimester (HCC) Encounter for anatomic survey (HCC) 19 weeks gestation of (HCC) SONOGRAM - COMPLETE Routine 03/19/2025 2:21 PM CDT Encounter for nuchal translucency testing (HCC) 13 weeks gestation of (HCC) Uterine fibroids affecting in second trimester (HCC) from Last 3 Months Results * Sonogram - Complete (06/01/2025 7:30 AM CDT) Only the most recent of3 resultswithin the time period is included. Linked Results Indication ======== Advanced maternal age (AMA), multigravida Screening Follow-Up Incomplete Anatomy Uterine fibroids in History ====== OB History 2. Para 0 Lab Tests Test Date Result NIPT Low risk, Male Maternal Assessment Physical Exam Height 165 cm, 5 ft 5 in. Initial weight 80 kg, 176 lb. Initial BMI 29.29 kg/m Method ====== Transabdominal ultrasound. View: Sufficient ========= Reyes . Number of fetuses: 1 Dating ====== Date Details Gest. age CHERELLE LMP 12/18/2024 23 w + 4 d 09/24/2025 Stated CHERELLE 23 w + 4 d 09/24/2025 Previous U/S 03/19/2025 CRL 73.0 mm 24 w + 0 d 09/21/2025 U/S 06/01/2025 based upon AC, BPD, Femur, HC 23 w + 2 d 09/26/2025 Assigned dating based on the LMP, selected on 05/07/2025 23 w + 4 d 09/24/2025 General Evaluation Cardiac activity present. FHR 145 bpm. Presentation: cephalic Placenta: Placental site: anterior Umbilical cord: Cord vessels: 3 vessel cord - previously documented. Insertion site: normal insertion - previously documented Amniotic fluid: Amount of AF: normal. MVP 4.2 cm Biometry BPD 56.2 mm 23w 1d 29% Hadlock HC 215.7 mm 23w 4d 35% Hadlock AC 184.3 mm 23w 2d 31% Hadlock Femur 40.5 mm 23w 1d 24% Hadlock Humerus 37.1 mm 22w 6d 22% Kane HC / AC 1.17 Weight Calculation: EFW 574 g 26% Hadlock EFW (lb,oz) 1 lb 4 oz EFW by Hadlock ([id number]) appropriate Growth Overview Exam date GA BPD (mm) HC (mm) AC (mm) FL (mm) HL (mm) EFW (g) 05/07/2025 20w 0d 45.4 38% 166.8 16% 156.3 70% 31.7 37% 31.1 67% 341 59% 06/01/2025 23w 4d 56.2 29% 215.7 35% 184.3 31% 40.5 24% 37.1 22% 574 26% Anatomy The following structures appear normal: Head / Neck Cranium. Heart / Thorax 4-chamber view. RVOT view. LVOT view. 3-vessel view. 3-sexdjk-xsxfyzu view. Aortic arch view. Bicaval view. Ductal arch view. Interventricular septum. Great vessels. Abdomen Stomach. Kidneys. Bladder. Spine Cervical spine. Thoracic spine. Lumbar spine. Sacral spine. Extremities / Skeleton Hands. Right foot. The following structures were documented previously: Head / Neck Lateral ventricles. Choroid plexus. Midline falx. Cavum septi pellucidi. Cerebellum. Cisterna magna. Face Lips. Profile. Nose. Nasal bone. Orbits. Abdomen Cord insertion. Genitals. Extremities / Skeleton Arms. Legs. Left foot. Maternal Structures Uterus Fibroid(s) 1. Size 55 mm x 45 mm x 48 mm. Mean 49.3 mm. Vol 62.204 cm . Left Lower Quadrant 2. Size 33 mm x 31 mm x 24 mm. Mean 29.3 mm. Vol 12.855 cm . Right lower quadrant Posterior Fundal fibroid was not visualized Impression ========= Here today for completion of anatomical survey in interval growth ultrasounds along with myomas size. As previously noted she is AMA and had opted for NIPT which was reported as low risk. Single, live, intrauterine at 23w 4d The size is appropriate for the established gestational age. The amniotic fluid volume is normal. Normal appearing anterior placenta. Multiple myomas noted. No major malformations were seen within the limitations of ultrasound. The anatomical survey is now complete. Comment ======== The biometry is showing good interval growth in the estimated weight is appropriate for the gestational age. The amniotic fluid was normal and there was good movements noted. Reevaluation of the myomas sizes show them to be essentially unchanged from previous studies; the posterior fundal myoma was not visualized today due to enlarged gravid uterus. The remainder of the anatomical survey showed no gross abnormalities. Both ultrasound and screening/testing have their limitations in detecting all congenital anomalies and chromosomal abnormalities/inher ited disorders or genetic syndromes. Follow-up ======== As previously discussed due to AMA will continue with serial growth ultrasounds every 4-6 weeks starting at 28 weeks and will also monitor myomas sizes with the subsequent studies. Based on the subsequent findings will also determine need for additional testing. labor and preeclampsia precautions along with kick counts. Thank you for allowing us to partake in your patient's care. Coding ====== Diagnoses Z36.3: Encounter for screening for malformations O09.512: Supervision of elderly primigravida Procedures 17664: US Preg Uterus Follow Up [place] PACS Anatomical Region Laterality Modality Other 06/01/2025 7:30 AM CDT us Hailey Nolen MD [facility] ORDERABLES Edited Result - Final from Last 3 Months Insurance ANTHEM * Guarantor: TOY GIBSON Account Type Relation to Patient Date of Phone Billing Address Personal/Family [address] [place] [address] * Guarantor: TOY GIBSON Account Type Relation to Patient Date of Phone Billing Address Personal/Family [address] [place] [address] * Guarantor: TOY GIBSON Account Type Relation to Patient Date of Phone Billing Address Personal/Family [address] [place] [address]
[2025-06-16 12:15] LABS: Add Urine Microscopic? YES; Appearance Urine Clear (Clear); Glucose Urine UA Negative (Negative); Leukocyte Esterase Ur Negative LEU/UL (Negative); Nitrate Urine Negative (Negative); Non Pathogenic Casts 0-2; Specific Grav Ur 1.029 (1.001-1.035)
--- NOTE | 2025-06-16 12:27 | OBADM ---
This patient, Madelaine Malhotra, admitted to the OB room OB Post 116 for observation. Patient/family oriented to hospital policies and general routines including ID bracelet, bed and alarms, visiting hours, pain management, procedures, bathroom and other care routines, personal items, smoking policy, room service/diet, and visiting hours. Patient/Family are encouraged to report perceived risks to care and to ask questions if they do not understand what they are told or what they should do.
[2025-06-16 12:51] LABS: Fetal Fibronectin Negative
[2025-06-16 13:44] LABS: Hematocrit 34.5 % (37.0-47.0); Hemoglobin 12.0 g/dL (12.0-15.0); Immature Granulocyte Percent A 0.7 % (0-0.5); Lymphocytes Absolute Auto 1.27 K/mm3 (0.9-3.2); Mean Corpuscular HGB Conc 34.8 g/dl (32-36); Mean Corpuscular Hemoglobin 31.7 pg (26-34); Mean Corpuscular Volume 91.0 fl (80-100); Nucleated Red Blood Cells Absolute Auto 0.000 K/mm3 (0.0-0.012); Nucleated Red Blood Cells Perc 0.0 % (0.0-0.2); Platelet Count Result 300 k/mm3 (150-375); Red Blood Count 3.79 M/mm3 (4.2-5.4); White Blood Count 15.0 K/mm3 (4.5-10.0)
[2025-06-16] MEDS: DEXTROSE 5%/LACTATED RINGERS 1,000 ML 999 ML IV CONT (13:45)
[2025-06-16 14:04] LABS: Alanine Aminotransferase 15 U/L (6-35); Albumin Level 4.0 g/dL (3.5-5.1); Alkaline Phosphatase 117 U/L (38-126); Anion Gap 9 mmol/L (4-12); Aspartate Amino Transferase 28 U/L (14-36); Bilirubin,Total 0.7 mg/dL (0.2-1.3); Blood Urea Nitrogen 8 mg/dL (7-17); Calcium 9.3 mg/dL (8.4-10.2); Carbon Dioxide 18 mmol/L (22-30); Chloride 103 mmol/L (98-107); Estimated CRCL calculation 151 ml/min; Estimated Glomerular Filt Rate > 60; Glucose 91 mg/dL (65-110); Potassium 3.7 mmol/L (3.4-5.0); Sodium 130 mmol/L (137-145); Total Protein 7.5 g/dL (6.3-8.2)
[2025-06-16] MEDS: MAGNESIUM SULF 4 GM/WATER100ML 4 GM/100 ML BAG IVPB (14:54)
[2025-06-16] MEDS: BETAMETHASONE SOD PHOS/ACETATE 30 MG/5 ML VIAL 12 MG IM (14:57)
[2025-06-16] MEDS: LACTATED RINGERS 1,000 ML 75 ML IV CONT (15:06)
[2025-06-16] MEDS: MAGNESIUM SULF 20GM/WATER500ML 500 ML 50 MG IV CONT (15:27)
--- NOTE | 2025-06-16 16:32 | P.HP_ITS ---
H&P: HPI History of Present Illness Date/Time: 06/16/25 16:32 Chief Complaint: abdominal pain Narrative: Madelaine is a 35yo @ 25.5wks who presented to L&D for abdominal pains that she thought was due to gas. She had been at the [employer] over the weekend and ate a lot of pasta and thought it wasn't sitting well. When she arrived to L&D, she was found to be yanna regularly and having some variables. She was given an LR bolus, FFN and ROM+ were collected, she was sent for US to evaluate her cervix. She was found to have an ÁNGELA of 6.8, cervical length was 2.7cm. On exam, she was 2/90/ballottable. UA then resulted with 3+ ketones, FFN was negative, ROM+ was negative. She was given terb x2 and contractions spaced out, she was given liter of D5LR. She was given betamethasone and started on magne sium [facility] due to labor with contractions and heart decels in extreme prematurity. Her contractions and decelerations have since spaced out. Cervical exam at @ 1545 was unchanged. Review of Systems Constitutional: Constitutional: Denies chills, Denies fever(s) and Denies headache(s) Eyes: Eyes: Denies change in vision ENT: Denies headache(s) Cardiovascular: Cardiovascular: Denies chest pain and Denies dyspnea Respiratory: Respiratory: Denies dyspnea Genitourinary: Genitourinary: Denies abnormal vaginal bleeding, Reports pelvic pain and Denies vaginal discharge Neurologic: Denies headache(s) Psychiatric: Psychiatric: Denies anxiety and Denies depression [facility] Past Medical History Medical History Depression Bladder spasms Depressive disorder CHRIST (generalized anxiety disorder) Surgical History Surgical History H/O right breast biopsy benign History of hysteroscopy (~02/2024) suction D&C missed AB Family History Family History Mother Family history of elevated blood lipids Grandparent Family history of kidney disease Family history of malignant melanoma Hypertension Social History Social History Smoking status: Never smoker Alcohol intake: current Alcohol use details: socially Substance use: never Substance use type: does not use Do You Feel Safe in your Home?: Yes Lack of Transportation: No Lack of Food: Never True Current Housing: I Have Housing Concerned About Future Housing: No Difficulty Paying Gas/Electric Bills: No Difficulty Paying for Meds: No Currently Unemployed: No Education: Associate Degree Difficulty w/ Childcare or Family Care: No Living arrangements: with family Occupation/Education: occupation 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 Gender identity (if verbalized by the patient): Female Sexual Orientation (if Verbalized by the Patient): Straight or Heterosexual Spiritual care concerns: No Meds Home Medications and Allergies Home Medications ?Medication ?Instructions ?Recorded ?Confirmed ?Type escitalopram oxalate 10 mg tablet 10 mg PO DAILY #90 t abs 12/22/24 05/03/25 Rx (Lexapro) docosahexaenoic acid 200 mg mg PO 02/09/25 05/03/25 Hi story capsule ( DHA) Allergies Allergy/AdvReac Type Severity Reaction Status Date / Time No Known Allergies Allergy Verified 05/31/25 14:41 Vital Signs Vital Signs - 24 hr 06/16/25 11:48 06/16/25 11:53 06/16/25 12:00 Pulse Rate 87 Blood Pressure 132/54 L Pulse Oximetry 100 100 06/16/25 12:01 06/16/25 12:02 06/16/25 12:07 Pulse Rate 97 Blood Pressure 122/69 Pulse Oximetry 100 100 06/16/25 12:12 06/16/25 12:17 06/16/25 12:22 Pulse Rate Blood Pressure Pulse Oximetry 100 100 100 06/16/25 12:27 06/16/25 12:30 06/16/25 12:32 Pulse Rate 102 H Blood Pressure 116/101 H Pulse Oximetry 100 100 06/16/25 12:40 06/16/25 12:45 06/16/25 12:50 Pulse Rate 96 Blood Pressure 122/85 Pulse Oximetry 100 100 100 06/16/25 12:55 06/16/25 13:00 06/16/25 13:05 Pulse Rate 97 Blood Pressure 93/49 L Pulse Oximetry 100 99 100 06/16/25 13:10 06/16/25 13:15 06/16/25 13:20 Pulse Rate Blood Pressure Pulse Oximetry 100 99 100 06/16/25 13:25 06/16/25 13:30 06/16/25 13:33 Pulse Rate 99 Blood Pressure 139/55 L Pulse Oximetry 100 100 100 06/16/25 13:38 06/16/25 13:43 06/16/25 13:48 Pulse Rate Blood Pressure Pulse Oximetry 100 100 100 06/16/25 13:53 06/16/25 13:58 06/16/25 14:04 Pulse Rate Blood Pressure Pulse Oximetry 100 100 100 06/16/25 14:09 06/16/25 14:14 06/16/25 14:19 Pulse Rate Blood Pressure Pulse Oximetry 100 100 100 06/16/25 14:24 06/16/25 14:56 06/16/25 15:01 Pulse Rate Blood Pressure Pulse Oximetry 100 100 100 06/16/25 15:04 06/16/25 15:06 06/16/25 15:11 Pulse Rate 101 H Blood Pressure 136/62 Pulse Oximetry 100 100 06/16/25 15:15 06/16/25 15:16 06/16/25 15:21 Pulse Rate 114 H Blood Pressure 129/59 L Pulse Oximetry 100 100 06/16/25 15:26 06/16/25 15:30 06/16/25 15:31 Pulse Rate 96 Blood Pressure 129/63 Pulse Oximetry 100 100 06/16/25 15:36 06/16/25 15:41 06/16/25 15:45 Pulse Rate 101 H Blood Pressure 135/64 Pulse Oximetry 100 100 06/16/25 15:46 06/16/25 15:51 06/16/25 15:56 Pulse Rate Blood Pressure Pulse Oximetry 100 100 100 06/16/25 16:00 06/16/25 16:01 06/16/25 16:06 Pulse Rate 100 Blood Pressure 129/67 Pulse Oximetry 100 100 06/16/25 16:11 06/16/25 16:16 06/16/25 16:21 Pulse Rate 92 Blood Pressure 126/56 L Pulse Oximetry 100 100 99 06/16/25 16:26 06/16/25 16:30 06/16/25 16:31 Pulse Rate 91 Blood Pressure 130/53 L Pulse Oximetry 100 100 Exam Const: General: cooperative, comfortable, no acute distress and obese Nutritional Appearance: obese Orientation/consciousness: patient oriented x3 Resp: Effort & Inspection: normal respiratory effort Cardio: Rate: regular rate GI: GI Palp: No abdominal tenderness : Other: FHT's: 150's/ mod will/ + accels/ occasional variable decels - cat 2 TOCO: ctxs q8-15min Cervix: 2/90/ballottable Membranes: intact Presentation: cephalic Skin: General skin exam: normal color Neuro: General: patient oriented x3 Extrem: General: normal to inspection Psych: Appearance: grossly normal Affect: normal affect Attitude: cooperative H&P: Results Labs Labs: Short CBC 06/16/25 Range/Units 13:38 WBC 15.0 H (4.5-10.0) K/mm3 Hgb 12.0 (12.0-15.0) g/dL Hct 34.5 L (37.0-47.0) % Plt Count 300 (150-375) k/mm3 BMP 06/16/25 13:38 Sodium 130 L Potassium 3.7 Chloride 103 Carbon Dioxide 18 L BUN 8 Creatinine 0.46 L Glucose 91 Calcium 9.3 Liver Function 06/16/25 Range/Units 13:38 Total Bilirubin 0.7 (0.2-1.3) mg/dL AST 28 (14-36) U/L ALT 15 (6-35) U/L Alkaline Phosphatase 117 (38-126) U/L Albumin 4.0 (3.5-5.1) g/dL Urine 06/16/25 Range/Units 11:59 Urine Color Yellow (Yellow) Urine Appearance Clear (Clear) Urine pH 5.5 (5.0-9.0) Ur Specific [place] 1.029 (1.001-1.035) Urine Protein Trace (Negative) mg/dL Urine Glucose (UA) Negative (Negative) mg/dL Assessment and Plan Assessment and plan (1) labor in second trimester: Qualifiers: labor delivery status: without delivery Qualified Code(s): O60.02 - labor without delivery, second trimester Code(s): O60.02 - labor without delivery, second trimester Status: Acute (2) heart deceleration: Status: Acute Plan - pt s/p 2L IV fluids, terb x2 - FFN neg; cervical length 2.7cm; cervix unchanged after multiple hours; /ballottable - ROM+ swab neg; but ÁNGELA 6.8; no fluid on exam - tracing: category 2 with occasion variables decelerations; no longer recurrent, contractions have spaced out to 8-10 min - She has received betamethasone 12mg IM once and was started on magnesium sulfate, will start GBS ppx due to prematurity - [facility] fellow, Dr. Escoto, was called at 1436 and was informed of patient/history/tracing/results-- he felt as though the patient was not stable for transfer and that she could potentially need emergent pLTCS. I informed him that the tracing was category 2 and I did not feel comfortable with that plan as she was stable and it was not a category 3 tracing due to her severe prematurity. The attending, Dr. Harris was then included in the call per the transports team request. She felt as though the patient was also potentially not stable for transfer and requested that we fax the heart rate tracing to [phone] and [phone]. She was evaluated by Dr. Randhawa who was currently on L&D floor and he re-examined her cervix, which was unchanged multiple hours after the initial check and the heart tracing was reviewed by him, pt was comfortable. After [facility] reviewed the tracing, she called us back at [address] Randhawa. Dr. Harris then accepted the patient be transferred via maternal transport at 1618.
[2025-06-16] MEDS: AMPICILLIN SODIUM 2 GM in SODIUM CHLORIDE 0.9% IV 100 ML 200 ML IVPB (17:52)
--- NOTE | 2025-06-16 18:05 | PC.NURSE ---
[place] transport team here and assumed care of this patient at this time. Report given to Cat QUACH.
--- NOTE | 2025-06-18 10:00 | PM.TDS ---
Transfer Discharge Sum: Prov Provider Date of admission: 06/16/25 11:06 Primary care physician: Ludmila Winkler, TEST ENGINEER [employer]UC[employer]QUIPMENT Admitting clinician: Hailey Nolen MD Attending physician on admission: Hailey Nolen Discharging clinician: Hailey Nolen Anticipated date of transfer: 06/16/25 Receiving physician/facility: [facility] DS: Admitting Diagnosis Discharge Date 06/16/25 Admitting Diagnosis abdominal pain DS: Discharge Diagnosis Discharge Diagnosis (1) labor in second trimester: Qualifiers: labor delivery status: without delivery Qualified Code(s): O60.02 - labor without delivery, second trimester Code(s): O60.02 - labor without delivery, second trimester Status: Acute (2) heart deceleration: Status: Acute Transfer Discharge Sum: Med Medications Active and Home Medications: Home Medications escitalopram oxalate 10 mg tablet (Lexapro) 10 mg PO DAILY #90 tabs 12/22/24 [Rx Confirmed 05/03/25] docosahexaenoic acid 200 mg capsule ( DHA) mg PO 02/09/25 [History Confirmed 05/03/25] Transfer Discharge Sum: Hosp Hospital Course Hospital course: Madelaine is a 35yo @ 25.5wks who presented to L&D for abdominal pains that she thought was due to gas. She had been at the [facility] over the weekend and ate a lot of pasta and thought it wasn't sitting well. When she arrived to L&D, she was found to be yanna regularly and having some variables. She was given an LR bolus, FFN and ROM+ were collected, she was sent for US to evaluate her cervix. She was found to have an ÁNGELA of 6.8, cervical length was 2.7cm. On exam, she was 2/90/ballottable. UA then resulted with 3+ ketones, FFN was negative, ROM+ was negative. She was given terb x2 and contractions spaced out, she was given liter of D5LR. She was given betamethasone and started on magnesium while contacting [facility] team for transfer due to labor with contractions and heart decels in extreme prematurity. Her contractions and decelerations have since spaced out. Cervical exam at @ 1545 was unchanged. She was transferred via ambulance at 1801 via [facility] Maternal transport team. Patient Condition: Stable Time Spent with Patient Time attestation: Total time spent providing and/or coordinating transfer services: Total time spent: Less than 30 minutes Exam Const: General: cooperative, comfortable, no acute distress and obese Nutritional Appearance: obese Orientation/consciousness: patient oriented x3 Resp: Effort & Inspection: normal respiratory effort Cardio: Rate: regular rate GI: GI Palp: No abdominal tenderness : Other: FHT's: 150's/ mod will/ + accels/ occasional variable decels - cat 2 TOCO: ctxs q8-15min Cervix: 2/90/ballottable Membranes: intact Presentation: cephalic Skin: General skin exam: normal color Neuro: General: patient oriented x3 Extrem: General: normal to inspection Psych: Appearance: grossly normal Affect: normal affect Attitude: cooperative
== END 2025-06-16 18:20 | disposition short-term general hospital (02) ==
PROVIDERS: Admitting Provider Obstetrics & Gynecology; PCP Nurse Practitioner; Visit Provider Obstetrics & Gynecology
DX: O60.02 Preterm labor without delivery, second trimester (principal); O36.8320 Maternal care for abnormalities of the fetal heart rate or rhythm, second trimester, not applicable or unspecified; Z3A.25 25 weeks gestation of pregnancy
CPT/HCPCS: 36415; 76815; 76817; 80053; 81001; 82731; 84112; 85025; 96361; 96372; 96374; 96375; 96376; G0378; G0379; J0290; J0702; J3105; J3475; J7120; J7121